=== PATIENT | female | born 1995 | race Asian ===

== ENCOUNTER → 2017-05-01 | Outpatient (CLI) | payer OTHER ==
--- NOTE | 2017-05-01 09:42 | DIAGNOSTIC IMAGING REPORT ---
ABDOMEN LIMITED (US) HISTORY: Pain. Nausea. R10.11 Abdominal pain, RUQ. COMPARISON: None FINDINGS: Pancreas: The pancreas demonstrates a normal echotexture. Liver: Unremarkable. Gallbladder: No gallbladder wall thickening. No gallstones. CBD: 4 mm Right kidney: No hydronephrosis. IMPRESSION: No significant abnormality identified within the within the right upper quadrant. The above report was generated using voice recognition software. It may contain grammatical, syntax or spelling errors. Electronically signed by: Franklyn Wolf M.D. 05/01/2017 9:40 AM Dictated Date/Time: 05/01/2017 9:40 AM
== END | disposition home or self-care (01) ==
LOC: C.ULTR 08:37
PROVIDERS: ATTEND Internal Medicine
DX: R10.11 Right upper quadrant pain (principal)

== ENCOUNTER → 2017-11-10 | Outpatient (CLI) | payer OTHER | END | disposition home or self-care (01) | LOC: C.LABSPEC 16:01 | PROVIDERS: ATTEND Physician Assistant | DX: Z11.3 Encounter for screening for infections with a predominantly sexual mode of transmission (principal); Z11.8 Encounter for screening for other infectious and parasitic diseases ==

== ENCOUNTER 2018-01-07 20:22 | Emergency (ER) | payer OTHER ==
[~2018-01-07] VITALS: Ht 162.6 cm; Wt 51.0 kg
[2018-01-07 20:33] VITALS: TEMP 36.6; Ht 162.6 cm; Wt 51.0 kg
[2018-01-07] MEDS ORDERED: KETOROLAC TROMETHAMINE 30 MG/ML VIAL IV STA (20:53)
[2018-01-07] MEDS ORDERED: SODIUM CHLORIDE 0.9% 1000ML 1,000 ML IV ONE (20:53)
[2018-01-07] MEDS ORDERED: SODIUM CHLORIDE 0.9% 1000ML 1,000 ML IV STA (20:53)
--- NOTE | 2018-01-07 20:56 | EMERGENCY ROOM VISIT NOTE ---
History Report prepared by Theodore: Yuliana Nogueira Under the Supervision of: Dr. Edward Saeed M.D. First contact with patient: 20:47 Chief Complaint: ABDOMINAL PAIN Stated Complaint: PAIN IN LOWER RIGHT STOMACH History of Present Illness The patient is a 22 year old female who presents to the Emergency Room with complaints of persistent abdominal pain that started last night. The patient rates her pain a 5/10 in severity. The patient states the pain gets worse when she walks. She notes it hurts when she takes a deep breath in. The patient denies nausea, vomiting, fever, chills, or pain or swelling in legs. She states she is minimally short of breath. She denies any recent trauma or injuries. Source of History: patient Onset: last night Position: abdomen (right) Symptom Intensity: 5/10 Timing: other (persistent) Modifying Factors (Worsening): exertion Associated Symptoms: + SOB, No fevers, No chills, No nausea, No vomiting Note: Denies any pain or swelling in legs. Review of Systems See HPI for pertinent positives & negatives. A total of 10 systems reviewed and were otherwise negative. Past Medical & Surgical Patient reports no personal history. Old medical records were reviewed. Nurse's notes were reviewed and I agree with. Family History Diabetes mellitus Hypertension Social History Smoking Status: Never Smoker Smokeless Tobacco Use: No Alcohol Use: occasionally Marital Status: single Housing Status: lives with family Occupation Status: student Current/Historical Medications Scheduled Acetaminophen (Tylenol), 2-3 TABS PO PRN UD Control Pills ( Control Pills), 1 TAB PO DAILY Scheduled PRN Ibuprofen (Advil), 400-600 MG PO Q6H PRN for Pain or Fever Allergies Coded Allergies: No Known Allergies (Unverified , 01/07/18) Physical Exam Vital Signs Date Time Temp Pulse Resp B/P (MAP) Pulse Ox O2 Delivery O2 Flow Rate FiO2 01/07/18 22:49 84 18 119/87 99 Room Air 01/07/18 21:51 85 18 121/74 99 Room Air 01/07/18 20:33 36.6 86 18 141/90 99 Room Air Physical Exam General: Non-ill appearing young female in no acute distress. HEENT: Normal cephalic atraumatic. Pupils are equal round and reactive to light. Extraocular movements are intact. Oropharynx is pink with moist mucous membranes. No swelling of the mouth lips or tongue. Neck: Supple with a midline trachea. No meningeal signs or stiffness, no JVD or bruits. No Stridor. Chest: Clear to auscultation bilaterally. No wheezes or rhonchi. No increased work of breathing. Heart: regular rate and rhythm. Abdomen: Mildly tender in RUQ no rebound guarding or rigidity. No lower abdominal tenderness. Extremities: No cyanosis clubbing or edema. No calf tenderness or assymetry Spine/Back. Non tender to palpation. No CVA tenderness Skin: Good turgor without rashes. Neurologic exam: Cranial nerves two through 12 are intact. Motor and sensation are intact and symmetrical throughout. Medical Decision & Procedures ER Provider Diagnostic Interpretation: Radiology results as stated below per my review and radiologist interpretation: ABDOMINAL ULTRASOUND, RIGHT UPPER QUADRANT HISTORY: Right upper quadrant abdominal pain.. COMPARISON: Abdominal ultrasound 05/01/2017. FINDINGS: Pancreas: The pancreas demonstrates a normal echotexture. Liver: Unremarkable. Gallbladder: No gallbladder wall thickening. No gallstones. A 2 mm echogenic nodule abutting the wall the gallbladder which appears nonmobile. Therefore, this favors a tiny polyp. CBD: 3 mm. Right kidney: No hydronephrosis. IMPRESSION: A 2 mm gallbladder polyp. No gallbladder wall thickening. No gallstones. Electronically signed by: Donis Pruitt M.D. 01/07/2018 9:49 PM Dictated Date/Time: 01/07/2018 9:47 PM Laboratory Results 01/07/18 21:05 Red Blood Count 4.73, Mean Corpuscular Volume 89.0, Mean Corpuscular Hemoglobin 30.7, Mean Corpuscular Hemoglobin Concent 34.4, Mean Platelet Volume 10.4, Neutrophils (%) (Auto) 58.4, Lymphocytes (%) (Auto) 33.0, Monocytes (%) (Auto) 5.5, Eosinophils (%) (Auto) 2.2, Basophils (%) (Auto) 0.7, Neutrophils # (Auto) 5.96, Lymphocytes # (Auto) 3.36, Monocytes # (Auto) 0.56, Eosinophils # (Auto) 0.22, Basophils # (Auto) 0.07 01/07/18 21:05 Test 01/07/18 00:00 01/07/18 21:05 01/07/18 21:50 Urine Test NEG (NEG) White Blood Count 10.19 K/uL (4.8-10.8) Red Blood Count 4.73 M/uL (4.2-5.4) Hemoglobin 14.5 g/dL (12.0-16.0) Hematocrit 42.1 % (37-47) Mean Corpuscular Volume 89.0 fL (80-100) Mean Corpuscular Hemoglobin 30.7 pg (25-34) Mean Corpuscular Hemoglobin Concent 34.4 g/dl (32-36) Platelet Count 304 K/uL (130-400) Mean Platelet Volume 10.4 fL (7.4-10.4) Neutrophils (%) (Auto) 58.4 % Lymphocytes (%) (Auto) 33.0 % Monocytes (%) (Auto) 5.5 % Eosinophils (%) (Auto) 2.2 % Basophils (%) (Auto) 0.7 % Neutrophils # (Auto) 5.96 K/uL (1.4-6.5) Lymphocytes # (Auto) 3.36 K/uL (1.2-3.4) Monocytes # (Auto) 0.56 K/uL (0.11-0.59) Eosinophils # (Auto) 0.22 K/uL (0-0.5) Basophils # (Auto) 0.07 K/uL (0-0.2) RDW Standard Deviation 41.8 fL (36.4-46.3) RDW Coefficient of Variation 12.9 % (11.5-14.5) Immature Granulocyte % (Auto) 0.2 % Immature Granulocyte # (Auto) 0.02 K/uL (0.00-0.02) Anion Gap 5.0 mmol/L (3-11) Est Creatinine Clear Calc Drug Dose 87.3 ml/min Estimated GFR () 119.6 Estimated GFR (Non- 103.2 BUN/Creatinine Ratio 25.0 (10-20) Calcium Level 8.8 mg/dl (8.5-10.1) Total Bilirubin < 0.1 mg/dl (0.2-1) Direct Bilirubin < 0.1 mg/dl (0-0.2) Aspartate Amino Transf (AST/SGOT) 17 U/L (15-37) Alanine Aminotransferase (ALT/SGPT) 17 U/L (12-78) Alkaline Phosphatase 45 U/L (45-117) Total Protein 7.6 gm/dl (6.4-8.2) Albumin 3.6 gm/dl (3.4-5.0) Lipase 174 U/L (73-393) Urine Color YELLOW Urine Appearance CLEAR (CLEAR) Urine pH 6.5 (4.5-7.5) Urine Specific [place] 1.023 (1.000-1.030) Urine Protein NEG (NEG) Urine Glucose (UA) NEG (NEG) Urine Ketones NEG (NEG) Urine Occult Blood 2+ (NEG) Urine Nitrite NEG (NEG) Urine Bilirubin NEG (NEG) Urine Urobilinogen NEG (NEG) Urine Leukocyte Esterase NEG (NEG) Urine WBC (Auto) 1-5 /hpf (0-5) Urine RBC (Auto) 10-30 /hpf (0-4) Urine Hyaline Casts (Auto) 0 /lpf (0-5) Urine Epithelial Cells (Auto) 5-10 /lpf (0-5) Urine Bacteria (Auto) NEG (NEG) Laboratory studies as stated above per my review. Medications Administered Medications (Trade) Dose Ordered Sig/[place] Route Start Time Stop Time Status Last Admin Dose Admin Sodium Chloride 1,000 ml @ 999 mls/hr Q1H1M STAT IV 01/07/18 20:53 01/07/18 21:53 DC 01/07/18 21:09 999 MLS/HR Sodium Chloride 1,000 ml @ 150 mls/hr Q6H40M ONCE IV 01/07/18 20:53 01/08/18 03:32 01/07/18 21:10 150 MLS/HR ED Course 2046: Past medical records reviewed. The patient was evaluated in room A4B, and a complete history and physical examination were performed. 2052: Toradol Inj 30 mg IV, Sodium Chloride 1000 ml @ 999 mls/hr IV. 2224: The patient's pain may be more in the lower abdomen. I discussed the risks and benefits of a CT. I will go ahead and order a CT. Medical Decision Differentials include, but are not limited to; gallbladder disease, , ectopic , liver disease, pancreatitis, ovarian disease, appendicitis. This patient comes in as described above. She was placed in room A4. She is having abdominal pain which is on the right side and it seems more in the upper abdomen initially. She has had no fever or chills or nausea or vomiting. No trauma. She is currently having a normal menstrual period. Denies . test was negative. Urinalysis does not suggest infection. She has no white count or fever to suggest infection. She has no significant anemia. She has no acute electrolyte or metabolic abnormalities. She has nothing to suggest that she has liver, gallbladder, or pancreas disease. I did an ultrasound of her gallbladder was unremarkable. When she came back she said the pain seems more in her right lower abdomen and I talked about the risk and benefits of doing a CAT scan she did consent to doing this after I explained the risks and benefits. CAT scan was obtained. It shows no evidence of appendicitis. There are no other acute findings. The patient is feeling better and will be discharged to home. She can use ibuprofen for pain and return if: increasing pain, worsening of symptoms, any new problems or concerns. Follow-up with [facility] in 1-2 days for recheck. Medication Reconcilliation Current Medication List: was personally reviewed by me Impression Primary Impression: Right lower quadrant abdominal pain Scribe Attestation The scribe's documentation has been prepared under my direction and personally reviewed by me in its entirety. I confirm that the note above accurately reflects all work, treatment, procedures, and medical decision making performed by me. Departure Information Referrals Joy Alcantar M.D. (PCP) Patient Instructions My [facility]
[2018-01-07 21:16] LABS: BASO % 0.7 %; BASO ABS # 0.07 K/uL (0-0.2); EOS % 2.2 %; EOS ABS # 0.22 K/uL (0-0.5); HEMATOCRIT 42.1 % (37-47); HEMOGLOBIN 14.5 g/dL (12.0-16.0); IG# 0.02 K/uL (0.00-0.02); LYMPH ABS # 3.36 K/uL (1.2-3.4); MEAN CORPUSCULAR HEMOGLOBIN 30.7 pg (25-34); MEAN CORPUSCULAR HGB CONC 34.4 g/dl (32-36); MEAN PLATELET VOLUME 10.4 fL (7.4-10.4); MONO % 5.5 %; MONO ABS # 0.56 K/uL (0.11-0.59); NEUT % 58.4 %; NEUT ABS # 5.96 K/uL (1.4-6.5); PLATELET COUNT 304 K/uL (130-400); RED CELL DISTRIBUTION WIDTH CV 12.9 % (11.5-14.5); RED CELL DISTRIBUTION WIDTH SD 41.8 fL (36.4-46.3); WHITE BLOOD COUNT 10.19 K/uL (4.8-10.8)
[2018-01-07 21:39] LABS: CALCIUM 8.8 mg/dl (8.5-10.1); CREATININE 0.8 mg/dl (0.60-1.20); POTASSIUM 3.7 mmol/L (3.5-5.1)
--- NOTE | 2018-01-07 21:50 | DIAGNOSTIC IMAGING REPORT ---
ABDOMINAL ULTRASOUND, RIGHT UPPER QUADRANT HISTORY: Right upper quadrant abdominal pain.. COMPARISON: Abdominal ultrasound 05/01/2017. FINDINGS: Pancreas: The pancreas demonstrates a normal echotexture. Liver: Unremarkable. Gallbladder: No gallbladder wall thickening. No gallstones. A 2 mm echogenic nodule abutting the wall the gallbladder which appears nonmobile. Therefore, this favors a tiny polyp. CBD: 3 mm. Right kidney: No hydronephrosis. IMPRESSION: A 2 mm gallbladder polyp. No gallbladder wall thickening. No gallstones. Electronically signed by: Donis Pruitt M.D. 01/07/2018 9:49 PM Dictated Date/Time: 01/07/2018 9:47 PM
[2018-01-07] MEDS ORDERED: IBUP-1050 PO (21:56)
[2018-01-07] MEDS ORDERED: BCPILLS PO (21:56)
[2018-01-07] MEDS ORDERED: ACET-1256 PO (21:56)
[2018-01-07 21:58] LABS: ALBUMIN 3.6 gm/dl (3.4-5.0); ALKALINE PHOSPHATASE 45 U/L (45-117); ALT/SGPT 17 U/L (12-78); AST/SGOT 17 U/L (15-37); LIPASE 174 U/L (73-393); TOTAL PROTEIN 7.6 gm/dl (6.4-8.2)
[2018-01-07] MEDS ORDERED: OPTIRAY 320 IV PRN (22:45)
--- NOTE | 2018-01-07 23:12 | DIAGNOSTIC IMAGING REPORT ---
ABDOMEN AND PELVIS CT WITH IV CONTRAST CT DOSE: 246.58 mGy.cm HISTORY: Right lower quadrant abdominal pain. TECHNIQUE: Multiaxial CT images of the abdomen and pelvis were performed following the use of intravenous contrast. A dose lowering technique was utilized adhering to the principles of ALARA. COMPARISON STUDY: None. FINDINGS: A 6 mm linear density within the left lower lobe favors scarring. Otherwise, the lungs are clear. The liver, spleen, gallbladder, pancreas, kidneys, and adrenal glands are within normal limits. No bowel wall thickening or obstruction. The pelvic organs are unremarkable. No suspicious lytic or blastic osseous lesions. Normal appendix. IMPRESSION: 1. Normal appendix. 2. No bowel wall thickening or obstruction. Electronically signed by: Donis Pruitt M.D. 01/07/2018 11:11 PM Dictated Date/Time: 01/07/2018 11:03 PM
[2018-01-07 23:34] VITALS: BP 121/71; PULSE 82; O2SAT 99
== END 2018-01-07 23:35 | disposition home or self-care (01) ==
LOC: C.EDB 20:23 → C.EDA 23:35
DX: R10.11 Right upper quadrant pain (principal); R10.31 Right lower quadrant pain; R06.02 Shortness of breath; Z79.3 Long term (current) use of hormonal contraceptives; Z83.3 Family history of diabetes mellitus; Z82.49 Family history of ischemic heart disease and other diseases of the circulatory system